=== PATIENT | male | born 1970 | race Caucasian/White ===

== ENCOUNTER 2017-09-10 13:36 | Outpatient (CLI) | payer OTHER | END 2017-09-10 15:53 | disposition home or self-care (01) | LOC: HPC 13:36 | DX: Z01.818 Encounter for other preprocedural examination (principal); K76.9 Liver disease, unspecified; Z85.038 Personal history of other malignant neoplasm of large intestine | CPT/HCPCS: G0463 ==

== ENCOUNTER → 2017-09-15 | Day surgery (SDC) | payer OTHER ==
[~2017-09-15] MED LIST: LIDOCAINE 100 MG SYRINGE; MIDAZOLAM 1 MG/ML 2 ML INJ
== END | disposition home or self-care (01) ==
LOC: GIL 15:26
DX: K56.699 Other intestinal obstruction unspecified as to partial versus complete obstruction (principal); Z85.038 Personal history of other malignant neoplasm of large intestine
CPT/HCPCS: 45381

== ENCOUNTER 2017-09-16 05:42 | Inpatient (IN) | payer OTHER ==
[2017-09-16] MEDS: BUPIVACAINE 0.5%/EPI (SDV) 30 ML INJ INJ ×2 (06:30→07:30)
[2017-09-16] MEDS: Metronidazole 500 MG in NS 100 ML IVPB (07:00)
[2017-09-16] MEDS: CEFAZOLIN 2 GM/50 ML (PMX) 50 ML IVPB (07:00)
[2017-09-16] MEDS ORDERED: METOCLOPRAMIDE 10 MG INJ (07:39)
[2017-09-16] MEDS ORDERED: MIDAZOLAM 1 MG/ML 2 ML INJ (07:39)
[2017-09-16] MEDS ORDERED: metroNIDAZOLE 500 MG/NS (PMX) 100 ML IVPB (08:07)
[2017-09-16] MEDS ORDERED: CEFAZOLIN 1 GM INJ (08:07)
[2017-09-16] MEDS ORDERED: HYDROmorphONE 2 MG/ML SYG ×2 (08:19→14:05)
[2017-09-16] MEDS ORDERED: ROCURONIUM 50 MG INJ ×3 (08:34→13:20)
[2017-09-16] MEDS ORDERED: PROPOFOL 20 ML (08:34)
[2017-09-16] MEDS ORDERED: ROPIVACAINE 0.5 % 30 ML VIAL (12:49)
[2017-09-16] MEDS ORDERED: ONDANSETRON 4 MG INJ (12:50)
[2017-09-16] MEDS ORDERED: KETOROLAC 30 MG INJ (12:50)
[2017-09-16] MEDS ORDERED: METOPROLOL 5 MG INJ (12:51)
[2017-09-16] MEDS ORDERED: ONDANSETRON 4 MG INJ IV ×2 (13:30→15:00)
[2017-09-16] MEDS ORDERED: HYDROmorphONE (0.2 MG/ML) 10ML SYG IV ×3 (13:30)
[2017-09-16] MEDS ORDERED: DIPHENHYDRAMINE 50 MG INJ IV (13:30)
[2017-09-16] MEDS ORDERED: MEPERIDINE 25 MG INJ IV (13:30)
[2017-09-16] MEDS ORDERED: NEOSTIGMINE 3 MG/3 ML SYRINGE (13:50)
[2017-09-16] MEDS ORDERED: GLYCOPYRROLATE 0.4 MG INJ (13:50)
[2017-09-16] MEDS ORDERED: FENTAnyl 50 MCG/ML VIAL (14:04)
[2017-09-16] MEDS ORDERED: EPHEDrine SULFATE 50 MG/5 ML SYG (14:12)
[2017-09-16] MEDS ORDERED: D5W-0.45 NACL + KCL 20 MEQ 1,000 ML IV (14:38)
[2017-09-16] MEDS ORDERED: ACETAMINOPHEN 325 MG TAB PO (15:00)
[2017-09-16] MEDS ORDERED: HYDROCODONE/APAP (5/325) TAB PO (15:00)
[2017-09-16] MEDS ORDERED: HYDROmorphONE 0.5 MG/0.5 ML SYG IV ×2 (15:00)
[2017-09-16] MEDS ORDERED: HYDROmorphONE 1 MG/ML SYG IV (15:00)
[2017-09-16] MEDS ORDERED: DOCUSATE SODIUM 100 MG CAP PO (15:00)
[2017-09-16 15:40] LABS: ABNORMAL IP MESSAGE 1; HEMOGLOBIN 13.2 g/dl (14.0-18.0); MEAN CORPUSCULAR HEMOGLOBIN 33.1 pg (29.0-33.0); MEAN CORPUSCULAR HGB CONC 33.8 g/dl (32.0-37.0); MEAN CORPUSCULAR VOLUME 97.7 fl (82.0-101.0); MEAN PLATELET VOLUME 9.5 fl (7.4-10.4); PLATELET COUNT 212 10^3/UL (140-415); POSITIVE DIFF @See below; RED BLOOD COUNT 3.99 10^6/ul (4.70-6.10); RED CELL DISTRIBUTION WIDTH 13.7 % (11.5-14.5)
[2017-09-16 15:50] LABS: HOLD TRANSMISSIONS 1
[2017-09-16 15:52] LABS: ADD MAN DIFF? YES
[2017-09-16 15:52] LABS: WHITE BLOOD COUNT 28.3 10^3/ul (4.8-10.8)
[2017-09-16] MEDS: HYDROmorphONE 0.2 MG/ML PCA IV (15:53)
[2017-09-16 16:00] LABS: INR 1.27; PARTIAL THROMBOPLASTIN TIME 28.5 Sec (25.0-35.0); PROTIME 16.1 Sec (11.9-14.9); PT RATIO 1.3
[2017-09-16 16:06] LABS: PHOSPHORUS 4.8 mg/dl (2.5-4.9)
[2017-09-16 16:06] LABS: ALANINE AMINOTRANSFERASE 345 IU/L (13-69); ALBUMIN 3.4 g/dl (3.3-4.9); ALBUMIN/GLOBULIN RATIO 1.13; ALKALINE PHOSPHATASE 71 IU/L (42-121); ANION GAP 19 (8-16); ASPARTATE AMINO TRANSFERASE 320 IU/L (15-46); BILIRUBIN,INDIRECT 1.2 mg/dl (0-1.1); BILIRUBIN,TOTAL 1.2 mg/dl (0.2-1.3); CARBON DIOXIDE 23 mmol/L (21-31); CHLORIDE 104 mmol/L (97-110); GLUCOSE 142 mg/dl (70-220); MAGNESIUM 1.7 mg/dl (1.7-2.5); TOTAL PROTEIN 6.4 g/dl (6.1-8.1)
[2017-09-16 16:07] LABS: LACTIC ACID 5.7 mmol/L (0.5-2.0)
[2017-09-16 16:07] LABS: BLOOD UREA NITROGEN 13 mg/dl (7-20); CALCIUM 8.5 mg/dl (8.4-10.2); CREATININE 1.01 mg/dl (0.61-1.24); POTASSIUM 4.6 mmol/L (3.5-5.1); SODIUM 141 mmol/L (135-144)
[2017-09-16 16:19] LABS: ANISOCYTOSIS 1+ (0-0); BAND NEUTROPHILS #M 2.2 10^3/ul (0.0-0.6); BAND NEUTROPHILS % (M) 8 % (0-4); GIANT THROMBO% (M) 1 % (0-0); LYMPHOCYTES #M 0.5 10^3/ul (0.8-2.9); LYMPHOCYTES % (M) 2 % (15-51); MICROCYTOSIS 1+ (0-0); MONOCYTE #M 2.5 10^3/ul (0.3-0.9); MONOCYTES % (M) 9 % (0-11); PLATELET ESTIMATE NORMAL; POLYCHROMASIA 1+ (0-0); SEG NEUT #M 23.5 10^3/ul (1.6-7.5); SEGMENTED NEUTROPHILS (M) % 81 % (39-77); SMUDGE%M 3 % (0-0)
[2017-09-16] MEDS: D5W-0.45 NACL + KCL 20 MEQ 1,000 ML IV ×2 (17:00→17:13)
[2017-09-16 21:44] LABS: LACTIC ACID 4.7 mmol/L (0.5-2.0)
[2017-09-16] MEDS: SOD CHLORIDE 0.9% 1,000 ML IV (23:25)
[2017-09-17] MEDS: SOD CHLORIDE 0.9% 500 ML IV ×2 (00:48→11:47)
[2017-09-17 00:52] LABS: ADD MAN DIFF? NO
[2017-09-17 00:55] LABS: WHITE BLOOD COUNT 35.3 10^3/ul (4.8-10.8)
[2017-09-17 00:55] LABS: ABNORMAL IP MESSAGE 1; BASOPHIL # 0.1 10^3/ul (0.0-0.1); BASOPHILS % 0.1 % (0.0-2.0); HEMATOCRIT 29.1 % (42.0-52.0); HEMOGLOBIN 9.7 g/dl (14.0-18.0); LYMPHOCYTES # 1.1 10^3/ul (0.8-2.9); MEAN CORPUSCULAR HEMOGLOBIN 33.2 pg (29.0-33.0); MEAN CORPUSCULAR HGB CONC 33.3 g/dl (32.0-37.0); MEAN CORPUSCULAR VOLUME 99.7 fl (82.0-101.0); MEAN PLATELET VOLUME 10.1 fl (7.4-10.4); MONOCYTE # 2.9 10^3/ul (0.3-0.9); MONOCYTES % 8.1 % (0.0-11.0); NEUTROPHIL # 30.9 10^3/ul (1.6-7.5); NEUTROPHILS % 87.7 % (39.0-77.0); PLATELET COUNT 288 10^3/UL (140-415); POSITIVE DIFF @See below; RED BLOOD COUNT 2.92 10^6/ul (4.70-6.10); RED CELL DISTRIBUTION WIDTH 13.7 % (11.5-14.5)
[2017-09-17] MEDS: PIPER-TAZO 3.375 GM IV (PMX) 100 ML IVPB ×4 (00:55→18:06)
[2017-09-17] MEDS ORDERED: VANCOMYCIN IV PER PHARMACY XX (02:00)
[2017-09-17 02:28] LABS: INR 1.91; PROTIME 22.3 Sec (11.9-14.9); PT RATIO 1.7
[2017-09-17 02:32] LABS: ALANINE AMINOTRANSFERASE 675 IU/L (13-69); ALBUMIN 2.8 g/dl (3.3-4.9); ALBUMIN/GLOBULIN RATIO 1.16; ALKALINE PHOSPHATASE 53 IU/L (42-121); ANION GAP 18 (8-16); BILIRUBIN,INDIRECT 1.5 mg/dl (0-1.1); BILIRUBIN,TOTAL 1.5 mg/dl (0.2-1.3); BLOOD UREA NITROGEN 18 mg/dl (7-20); CALCIUM 7.2 mg/dl (8.4-10.2); CARBON DIOXIDE 19 mmol/L (21-31); CHLORIDE 108 mmol/L (97-110); GLUCOSE 200 mg/dl (70-220); POTASSIUM 5.4 mmol/L (3.5-5.1); SODIUM 140 mmol/L (135-144); TOTAL PROTEIN 5.2 g/dl (6.1-8.1)
[2017-09-17] MEDS: VANCOMYCIN 1.75 GM in D5W 500 ML IVPB (02:34)
[2017-09-17 02:39] LABS: ASPARTATE AMINO TRANSFERASE 640 IU/L (15-46)
[2017-09-17] MEDS: D5W-0.45 NACL + KCL 20 MEQ 1,000 ML IV (02:42)
[2017-09-17] MEDS: DEXTROSE 5%-0.45% NACL 1,000 ML IV ×3 (03:18→17:15)
[2017-09-17] MEDS: SOD CHLORIDE 0.9% 1,000 ML IV ×2 (03:18→10:12)
[2017-09-17 03:46] LABS: ADD UMIC YES; UR ASCORBIC ACID 40 mg/dL (NEGATIVE); UR BILIRUBIN (Dip) NEGATIVE (NEGATIVE); UR BLOOD (Dip) 3+ mg/dL (NEGATIVE); UR CLARITY SLIGHTLY CLOUDY (CLEAR); UR COLOR YELLOW (YELLOW); UR GLUCOSE (Dip) 3+ mg/dL (NEGATIVE); UR KETONES (Dip) NEGATIVE (NEGATIVE); UR LEUKOCYTE ESTERASE (Dip) NEGATIVE Leu/ul (NEGATIVE); UR MUCUS FEW /HPF (NONE SEEN); UR NITRITE (Dip) NEGATIVE (NEGATIVE); UR RBC 12 /HPF (0-5); UR SPECIFIC GRAVITY (Dip) 1.022 (1.003-1.030); UR TOTAL PROTEIN (Dip) 1+ mg/dl (NEGATIVE); UR UROBILINOGEN (Dip) NEGATIVE (NEGATIVE); UR WBC 1 /HPF (0-5)
[2017-09-17 05:11] LABS: ABNORMAL IP MESSAGE 1; ADD MAN DIFF? NO; BASOPHILS % 0.1 % (0.0-2.0); HEMATOCRIT 21.7 % (42.0-52.0); HEMOGLOBIN 7.5 g/dl (14.0-18.0); LYMPHOCYTES # 0.9 10^3/ul (0.8-2.9); LYMPHOCYTES % 3.3 % (15.0-51.0); MEAN CORPUSCULAR HEMOGLOBIN 33.2 pg (29.0-33.0); MEAN CORPUSCULAR HGB CONC 34.6 g/dl (32.0-37.0); MEAN PLATELET VOLUME 10.1 fl (7.4-10.4); MONOCYTE # 2.8 10^3/ul (0.3-0.9); MONOCYTES % 10.5 % (0.0-11.0); NEUTROPHIL # 22.4 10^3/ul (1.6-7.5); NEUTROPHILS % 85.2 % (39.0-77.0); PLATELET COUNT 226 10^3/UL (140-415); POSITIVE DIFF @See below; RED BLOOD COUNT 2.26 10^6/ul (4.70-6.10); RED CELL DISTRIBUTION WIDTH 13.7 % (11.5-14.5)
[2017-09-17 05:11] LABS: WHITE BLOOD COUNT 26.2 10^3/ul (4.8-10.8)
[2017-09-17 05:39] LABS: INR 2.12; PROTIME 24.3 Sec (11.9-14.9); PT RATIO 1.9
[2017-09-17 06:02] LABS: B-TYPE NATRIURETIC PEPTIDE 84 PG/ML (0-125)
[2017-09-17 06:31] LABS: LACTIC ACID 6.2 mmol/L (0.5-2.0)
[2017-09-17 06:49] LABS: ALANINE AMINOTRANSFERASE 770 IU/L (13-69); ALBUMIN 2.5 g/dl (3.3-4.9); ALBUMIN/GLOBULIN RATIO 1.04; ALKALINE PHOSPHATASE 64 IU/L (42-121); ANION GAP 16 (8-16); ASPARTATE AMINO TRANSFERASE 668 IU/L (15-46); BILIRUBIN,INDIRECT 1.4 mg/dl (0-1.1); BILIRUBIN,TOTAL 1.4 mg/dl (0.2-1.3); BLOOD UREA NITROGEN 19 mg/dl (7-20); CARBON DIOXIDE 19 mmol/L (21-31); CHLORIDE 110 mmol/L (97-110); CREATININE 1.64 mg/dl (0.61-1.24); GLUCOSE 168 mg/dl (70-220); MAGNESIUM 1.5 mg/dl (1.7-2.5); PHOSPHORUS 3.9 mg/dl (2.5-4.9); POTASSIUM 5.5 mmol/L (3.5-5.1); SODIUM 139 mmol/L (135-144); TOTAL PROTEIN 4.9 g/dl (6.1-8.1)
[2017-09-17 07:26] LABS: AADO2 Arterial 45.5 mmHg (7.0-24.0); Allen Test ACCEPTAB; Arterial Base Excess -6.2 mmol/L (-3.0-3); Arterial Blood Gas Oxygen Sat 96.7 mmHG (95.0-98.0); Arterial COHb 0.3 % (0.0-3.0); Arterial Fraction of Oxyhgb 95.8 % (93.0-99.0); Arterial HCO3 19.1 mmol/L (22.0-26.0); Arterial MetHb 0.6 % (0.0-1.5); Arterial Total Hemglobin 8.6 g/dl (12.0-18.0); Arterial pCO2 36.4 mmhg (35-45); MODE NASAL CANNULA; Site Right Radial
[2017-09-17] MEDS: PANTOPRAZOLE 40 MG INJ IV (07:32)
[2017-09-17] MEDS ORDERED: ENOXAPARIN 40 MG/0.4 ML SYG SC (09:00)
[2017-09-17] MEDS ORDERED: FAMOTIDINE 20 MG INJ IV (09:00)
[2017-09-17] MEDS: PHYTONADIONE 2 MG in DEXTROSE 5% 50 ML IVPB (09:22)
[2017-09-17] MEDS ORDERED: PHYTONADIONE 2 MG in DEXTROSE 5% 50 ML IVPB (10:00)
[2017-09-17] MEDS: ALBUMIN HUMAN 25% 100 ML IV (11:47)
[2017-09-17 12:41] LABS: HEMATOCRIT 21.2 % (42.0-52.0); HEMOGLOBIN 7.3 g/dl (14.0-18.0)
[2017-09-17 12:51] LABS: SODIUM,URINE RANDOM < 13 mmol/L (30-90)
[2017-09-17 12:55] LABS: CREATININE,URINE RANDOM 283.67 mg/dl (20-370); PROTEIN/CREAT RATIO 0.09 RATIO
[2017-09-17 13:08] LABS: ANION GAP 19 (8-16); BLOOD UREA NITROGEN 23 mg/dl (7-20); CALCIUM 7.2 mg/dl (8.4-10.2); CARBON DIOXIDE 19 mmol/L (21-31); CHLORIDE 108 mmol/L (97-110); CREATININE 1.93 mg/dl (0.61-1.24); GLUCOSE 142 mg/dl (70-220); POTASSIUM 5.1 mmol/L (3.5-5.1); SODIUM 141 mmol/L (135-144)
[2017-09-17] MEDS ORDERED: VANCOMYCIN 1.25 GM in SOD CHLORIDE 0.9% 250 ML IVPB (14:00)
[2017-09-17] MEDS: FUROSEMIDE 20 MG INJ IV (14:24)
[2017-09-17 18:33] LABS: LACTIC ACID 3.8 mmol/L (0.5-2.0)
[2017-09-17] MEDS: HYDROmorphONE 0.2 MG/ML PCA IV (20:17)
[2017-09-17 20:33] LABS: HEMATOCRIT 16.6 % (42.0-52.0)
[2017-09-17 20:47] LABS: HEMOGLOBIN 5.6 g/dl (14.0-18.0)
[2017-09-17 21:03] LABS: LACTIC ACID 3.6 mmol/L (0.5-2.0)
[2017-09-17] MEDS: LORAZEPAM 0.5 MG TAB PO (22:01)
[2017-09-18] MEDS: PIPER-TAZO 3.375 GM IV (PMX) 100 ML IVPB ×4 (00:16→18:38)
[2017-09-18 03:22] LABS: ADD MAN DIFF? NO
[2017-09-18 03:25] LABS: WHITE BLOOD COUNT 15.7 10^3/ul (4.8-10.8)
[2017-09-18 03:25] LABS: ABNORMAL IP MESSAGE 1; BASOPHILS % 0.1 % (0.0-2.0); HEMATOCRIT 18.6 % (42.0-52.0); LYMPHOCYTES # 0.8 10^3/ul (0.8-2.9); LYMPHOCYTES % 5.3 % (15.0-51.0); MEAN CORPUSCULAR HEMOGLOBIN 32.3 pg (29.0-33.0); MEAN CORPUSCULAR HGB CONC 34.4 g/dl (32.0-37.0); MEAN CORPUSCULAR VOLUME 93.9 fl (82.0-101.0); MEAN PLATELET VOLUME 10.4 fl (7.4-10.4); MONOCYTE # 1.9 10^3/ul (0.3-0.9); NEUTROPHIL # 12.9 10^3/ul (1.6-7.5); NEUTROPHILS % 81.9 % (39.0-77.0); PLATELET COUNT 132 10^3/UL (140-415); POSITIVE DIFF @See below; RED BLOOD COUNT 1.98 10^6/ul (4.70-6.10); RED CELL DISTRIBUTION WIDTH 14.4 % (11.5-14.5)
[2017-09-18 03:29] LABS: HEMOGLOBIN 6.4 g/dl (14.0-18.0)
[2017-09-18 03:45] LABS: INR 1.69; PARTIAL THROMBOPLASTIN TIME 24.1 Sec (25.0-35.0); PROTIME 20.2 Sec (11.9-14.9); PT RATIO 1.6
[2017-09-18 04:05] LABS: LACTIC ACID 2.5 mmol/L (0.5-2.0)
[2017-09-18 04:07] LABS: B-TYPE NATRIURETIC PEPTIDE 80 PG/ML (0-125)
[2017-09-18 04:14] LABS: IMMEDIATE SPIN CROSSMATCH 1 2
[2017-09-18 04:21] LABS: ALANINE AMINOTRANSFERASE 875 IU/L (13-69); ALBUMIN 2.8 g/dl (3.3-4.9); ALBUMIN/GLOBULIN RATIO 1.21; ALKALINE PHOSPHATASE 82 IU/L (42-121); ANION GAP 16 (8-16); ASPARTATE AMINO TRANSFERASE 704 IU/L (15-46); BILIRUBIN,INDIRECT 1.5 mg/dl (0-1.1); BILIRUBIN,TOTAL 1.5 mg/dl (0.2-1.3); BLOOD UREA NITROGEN 25 mg/dl (7-20); CALCIUM 7.3 mg/dl (8.4-10.2); CARBON DIOXIDE 23 mmol/L (21-31); CHLORIDE 108 mmol/L (97-110); CREATININE 1.61 mg/dl (0.61-1.24); GLUCOSE 109 mg/dl (70-220); MAGNESIUM 1.6 mg/dl (1.7-2.5); PHOSPHORUS 2.5 mg/dl (2.5-4.9); POTASSIUM 4.1 mmol/L (3.5-5.1); SODIUM 143 mmol/L (135-144); TOTAL PROTEIN 5.1 g/dl (6.1-8.1)
[2017-09-18 04:34] LABS: ALANINE AMINOTRANSFERASE 886 IU/L (13-69); ALBUMIN 2.8 g/dl (3.3-4.9); ALKALINE PHOSPHATASE 77 IU/L (42-121); ASPARTATE AMINO TRANSFERASE 699 IU/L (15-46); BILIRUBIN,INDIRECT 1.4 mg/dl (0-1.1); BILIRUBIN,TOTAL 1.4 mg/dl (0.2-1.3); TOTAL PROTEIN 5.1 g/dl (6.1-8.1)
[2017-09-18] MEDS: PANTOPRAZOLE 40 MG INJ IV (05:36)
[2017-09-18] MEDS: DEXTROSE 5%-0.45% NACL 1,000 ML IV ×4 (08:27→13:30)
[2017-09-18 09:48] LABS: ADD MAN DIFF? NO
[2017-09-18 09:53] LABS: WHITE BLOOD COUNT 15.6 10^3/ul (4.8-10.8)
[2017-09-18 09:53] LABS: ABNORMAL IP MESSAGE 1; BASOPHILS % 0.1 % (0.0-2.0); HEMOGLOBIN 7.4 g/dl (14.0-18.0); LYMPHOCYTES # 0.7 10^3/ul (0.8-2.9); LYMPHOCYTES % 4.5 % (15.0-51.0); MEAN CORPUSCULAR HEMOGLOBIN 31.1 pg (29.0-33.0); MEAN CORPUSCULAR HGB CONC 35.2 g/dl (32.0-37.0); MEAN CORPUSCULAR VOLUME 88.2 fl (82.0-101.0); MONOCYTE # 1.6 10^3/ul (0.3-0.9); MONOCYTES % 10.3 % (0.0-11.0); NEUTROPHIL # 13.1 10^3/ul (1.6-7.5); NEUTROPHILS % 84.2 % (39.0-77.0); PLATELET COUNT 120 10^3/UL (140-415); POSITIVE DIFF @See below; RED BLOOD COUNT 2.38 10^6/ul (4.70-6.10); RED CELL DISTRIBUTION WIDTH 17.6 % (11.5-14.5)
[2017-09-18 10:11] LABS: LACTIC ACID 1.9 mmol/L (0.5-2.0)
[2017-09-18] MEDS: HYDROmorphONE 0.2 MG/ML PCA IV (15:04)
[2017-09-18 16:38] LABS: HEMATOCRIT 21.8 % (42.0-52.0); HEMOGLOBIN 7.4 g/dl (14.0-18.0)
[2017-09-18 16:58] LABS: LACTIC ACID 2.2 mmol/L (0.5-2.0)
[2017-09-18] MEDS: DOCUSATE SODIUM 100 MG CAP PO (20:31)
[2017-09-18 22:22] LABS: ADD MAN DIFF? NO
[2017-09-18 22:25] LABS: ABNORMAL IP MESSAGE 1; BASOPHILS % 0.1 % (0.0-2.0); EOSINOPHILS % 0.1 % (0.0-7.0); HEMATOCRIT 19.7 % (42.0-52.0); LYMPHOCYTES # 0.9 10^3/ul (0.8-2.9); LYMPHOCYTES % 5.7 % (15.0-51.0); MEAN CORPUSCULAR HEMOGLOBIN 30.3 pg (29.0-33.0); MEAN CORPUSCULAR VOLUME 89.1 fl (82.0-101.0); MEAN PLATELET VOLUME 9.6 fl (7.4-10.4); MONOCYTE # 1.4 10^3/ul (0.3-0.9); MONOCYTES % 9.3 % (0.0-11.0); NEUTROPHIL # 12.7 10^3/ul (1.6-7.5); NEUTROPHILS % 84.2 % (39.0-77.0); PLATELET COUNT 111 10^3/UL (140-415); POSITIVE DIFF @See below; RED BLOOD COUNT 2.21 10^6/ul (4.70-6.10); RED CELL DISTRIBUTION WIDTH 18.2 % (11.5-14.5)
[2017-09-18 22:35] LABS: HEMOGLOBIN 6.7 g/dl (14.0-18.0)
[2017-09-18 22:41] LABS: LACTIC ACID 1.5 mmol/L (0.5-2.0)
[2017-09-19] MEDS: PIPER-TAZO 3.375 GM IV (PMX) 100 ML IVPB ×2 (00:22→05:28)
[2017-09-19] MEDS: DEXTROSE 5%-0.45% NACL 1,000 ML IV (00:23)
[2017-09-19] MEDS: PANTOPRAZOLE 40 MG INJ IV (05:28)
[2017-09-19 05:36] LABS: ADD MAN DIFF? NO
[2017-09-19 05:45] LABS: ABNORMAL IP MESSAGE 1; BASOPHILS % 0.1 % (0.0-2.0); EOSINOPHILS # 0.1 10^3/ul (0.0-0.5); EOSINOPHILS % 0.3 % (0.0-7.0); LYMPHOCYTES # 0.8 10^3/ul (0.8-2.9); LYMPHOCYTES % 5.9 % (15.0-51.0); MEAN CORPUSCULAR HEMOGLOBIN 30.9 pg (29.0-33.0); MEAN CORPUSCULAR VOLUME 90.9 fl (82.0-101.0); MEAN PLATELET VOLUME 9.9 fl (7.4-10.4); MONOCYTE # 1.4 10^3/ul (0.3-0.9); MONOCYTES % 9.4 % (0.0-11.0); NEUTROPHILS % 83.4 % (39.0-77.0); PLATELET COUNT 123 10^3/UL (140-415); POSITIVE DIFF @See below; RED CELL DISTRIBUTION WIDTH 17.8 % (11.5-14.5)
[2017-09-19 05:45] LABS: WHITE BLOOD COUNT 14.3 10^3/ul (4.8-10.8)
[2017-09-19 06:02] LABS: HEMOGLOBIN 6.8 g/dl (14.0-18.0)
[2017-09-19 06:03] LABS: ANION GAP 11 (8-16); BLOOD UREA NITROGEN 20 mg/dl (7-20); CALCIUM 7.6 mg/dl (8.4-10.2); CARBON DIOXIDE 28 mmol/L (21-31); CHLORIDE 103 mmol/L (97-110); CREATININE 1.31 mg/dl (0.61-1.24); GLUCOSE 121 mg/dl (70-220); MAGNESIUM 1.8 mg/dl (1.7-2.5); PHOSPHORUS 2.1 mg/dl (2.5-4.9); POTASSIUM 3.9 mmol/L (3.5-5.1); SODIUM 138 mmol/L (135-144)
[2017-09-19] MEDS: HYDROmorphONE 0.2 MG/ML PCA IV (08:37)
[2017-09-19] MEDS: DOCUSATE SODIUM 100 MG CAP PO ×2 (09:04→21:06)
[2017-09-19 12:22] LABS: HEMATOCRIT 24.5 % (42.0-52.0); HEMOGLOBIN 8.4 g/dl (14.0-18.0)
[2017-09-19 13:09] LABS: LACTIC ACID 2.3 mmol/L (0.5-2.0)
[2017-09-19 19:40] LABS: LACTIC ACID 1.8 mmol/L (0.5-2.0)
[2017-09-19] MEDS: FAMOTIDINE 20 MG TAB PO (21:06)
[2017-09-20] MEDS: HYDROmorphONE 0.2 MG/ML PCA IV (04:28)
[2017-09-20 05:08] LABS: ADD MAN DIFF? NO
[2017-09-20 05:26] LABS: WHITE BLOOD COUNT 14.7 10^3/ul (4.8-10.8)
[2017-09-20 05:26] LABS: ABNORMAL IP MESSAGE 1; BASOPHILS % 0.1 % (0.0-2.0); EOSINOPHILS # 0.2 10^3/ul (0.0-0.5); EOSINOPHILS % 1.3 % (0.0-7.0); HEMOGLOBIN 7.2 g/dl (14.0-18.0); LYMPHOCYTES # 0.8 10^3/ul (0.8-2.9); LYMPHOCYTES % 5.6 % (15.0-51.0); MEAN CORPUSCULAR HEMOGLOBIN 31.2 pg (29.0-33.0); MEAN CORPUSCULAR HGB CONC 34.3 g/dl (32.0-37.0); MEAN CORPUSCULAR VOLUME 90.9 fl (82.0-101.0); MEAN PLATELET VOLUME 9.7 fl (7.4-10.4); MONOCYTE # 1.7 10^3/ul (0.3-0.9); MONOCYTES % 11.4 % (0.0-11.0); NEUTROPHILS % 81.2 % (39.0-77.0); PLATELET COUNT 166 10^3/UL (140-415); POSITIVE DIFF @See below; RED BLOOD COUNT 2.31 10^6/ul (4.70-6.10); RED CELL DISTRIBUTION WIDTH 17.3 % (11.5-14.5)
[2017-09-20 05:34] LABS: PROTIME 16.4 Sec (11.9-14.9); PT RATIO 1.3
[2017-09-20 05:35] LABS: PARTIAL THROMBOPLASTIN TIME 38.6 Sec (25.0-35.0)
[2017-09-20 05:47] LABS: LACTIC ACID 1.6 mmol/L (0.5-2.0)
[2017-09-20 05:56] LABS: ALANINE AMINOTRANSFERASE 433 IU/L (13-69); ALBUMIN 2.7 g/dl (3.3-4.9); ALBUMIN/GLOBULIN RATIO 1.17; ALKALINE PHOSPHATASE 114 IU/L (42-121); ANION GAP 13 (8-16); ASPARTATE AMINO TRANSFERASE 134 IU/L (15-46); BILIRUBIN,INDIRECT 1.4 mg/dl (0-1.1); BILIRUBIN,TOTAL 1.4 mg/dl (0.2-1.3); BLOOD UREA NITROGEN 23 mg/dl (7-20); CALCIUM 7.9 mg/dl (8.4-10.2); CARBON DIOXIDE 27 mmol/L (21-31); CHLORIDE 103 mmol/L (97-110); GLUCOSE 103 mg/dl (70-220); PHOSPHORUS 2.4 mg/dl (2.5-4.9); SODIUM 139 mmol/L (135-144)
[2017-09-20 05:57] LABS: B-TYPE NATRIURETIC PEPTIDE 206 PG/ML (0-125)
[2017-09-20] MEDS: DOCUSATE SODIUM 100 MG CAP PO ×2 (09:50→21:30)
[2017-09-20] MEDS: HYDROCODONE/APAP (5/325) TAB PO ×4 (11:37→22:30)
[2017-09-20] MEDS: FAMOTIDINE 20 MG TAB PO (21:31)
[2017-09-21] MEDS: HYDROCODONE/APAP (5/325) TAB PO ×4 (02:28→13:02)
[2017-09-21 05:36] LABS: ADD MAN DIFF? NO
[2017-09-21 05:45] LABS: WHITE BLOOD COUNT 13.3 10^3/ul (4.8-10.8)
[2017-09-21 05:45] LABS: ABNORMAL IP MESSAGE 1; BASOPHILS % 0.2 % (0.0-2.0); EOSINOPHILS # 0.6 10^3/ul (0.0-0.5); EOSINOPHILS % 4.2 % (0.0-7.0); HEMATOCRIT 21.7 % (42.0-52.0); HEMOGLOBIN 7.3 g/dl (14.0-18.0); LYMPHOCYTES # 0.9 10^3/ul (0.8-2.9); LYMPHOCYTES % 6.7 % (15.0-51.0); MEAN CORPUSCULAR HEMOGLOBIN 30.5 pg (29.0-33.0); MEAN CORPUSCULAR HGB CONC 33.6 g/dl (32.0-37.0); MEAN CORPUSCULAR VOLUME 90.8 fl (82.0-101.0); MEAN PLATELET VOLUME 9.8 fl (7.4-10.4); MONOCYTE # 1.8 10^3/ul (0.3-0.9); MONOCYTES % 13.8 % (0.0-11.0); NEUTROPHIL # 9.9 10^3/ul (1.6-7.5); NEUTROPHILS % 74.6 % (39.0-77.0); PLATELET COUNT 186 10^3/UL (140-415); POSITIVE DIFF @See below; RED BLOOD COUNT 2.39 10^6/ul (4.70-6.10); RED CELL DISTRIBUTION WIDTH 16.6 % (11.5-14.5)
[2017-09-21 05:59] LABS: INR 1.38; PARTIAL THROMBOPLASTIN TIME 35.2 Sec (25.0-35.0); PROTIME 17.2 Sec (11.9-14.9); PT RATIO 1.3
[2017-09-21 05:59] LABS: LACTIC ACID 1.6 mmol/L (0.5-2.0)
[2017-09-21 06:27] LABS: ALANINE AMINOTRANSFERASE 299 IU/L (13-69); ALBUMIN 2.7 g/dl (3.3-4.9); ALBUMIN/GLOBULIN RATIO 1.08; ALKALINE PHOSPHATASE 127 IU/L (42-121); ANION GAP 10 (8-16); ASPARTATE AMINO TRANSFERASE 73 IU/L (15-46); BILIRUBIN,INDIRECT 1.4 mg/dl (0-1.1); BILIRUBIN,TOTAL 1.4 mg/dl (0.2-1.3); BLOOD UREA NITROGEN 25 mg/dl (7-20); CARBON DIOXIDE 30 mmol/L (21-31); CHLORIDE 103 mmol/L (97-110); CREATININE 1.01 mg/dl (0.61-1.24); GLUCOSE 108 mg/dl (70-220); MAGNESIUM 2.1 mg/dl (1.7-2.5); PHOSPHORUS 2.5 mg/dl (2.5-4.9); POTASSIUM 3.4 mmol/L (3.5-5.1); SODIUM 140 mmol/L (135-144); TOTAL PROTEIN 5.2 g/dl (6.1-8.1)
[2017-09-21 06:29] LABS: B-TYPE NATRIURETIC PEPTIDE 90 PG/ML (0-125)
[2017-09-21] MEDS: DOCUSATE SODIUM 100 MG CAP PO (08:51)
[2017-09-21] MEDS: POTASSIUM CHLORIDE (SR) 20 MEQ TAB PO (12:54)
== END 2017-09-21 13:28 | disposition home or self-care (01) | DRG 329 ==
LOC: REC 05:42 → ICU 09-17 02:34 → MS1 09-20 12:51
PROVIDERS: Transplant Surgery
PROC: 0DTN4ZZ Resection of Sigmoid Colon, Percutaneous Endoscopic Approach (ICD-10-PCS; principal; 2017-09-16 07:30)
PROC: 0FB14ZZ Excision of Right Lobe Liver, Percutaneous Endoscopic Approach (ICD-10-PCS; 2017-09-16 07:30)
PROC: 30233N1 Transfusion of Nonautologous Red Blood Cells into Peripheral Vein, Percutaneous Approach (ICD-10-PCS; 2017-09-16 07:43)
DX: C18.7 Malignant neoplasm of sigmoid colon (principal); N17.0 Acute kidney failure with tubular necrosis; C78.7 Secondary malignant neoplasm of liver and intrahepatic bile duct; E87.5 Hyperkalemia; R71.0 Precipitous drop in hematocrit; K91.840 Postprocedural hemorrhage of a digestive system organ or structure following a digestive system procedure; E86.0 Dehydration; I95.81 Postprocedural hypotension; Y83.8 Other surgical procedures as the cause of abnormal reaction of the patient, or of later complication, without mention of misadventure at the time of the procedure; Y81.8 Miscellaneous general- and plastic-surgery devices associated with adverse incidents, not elsewhere classified; Y92.230 Patient room in hospital as the place of occurrence of the external cause
CPT/HCPCS: 36430; 36600; 74176; 76705; 76775; 80048; 80053; 80076; 81001; 81003; 82570; 82803; 83605; 83735; 83880; 84100; 84300; 84560; 85014; 85018; 85025; 85610; 85730; 86850; 86900; 86901; 86920; 87040; 87081; 87086; 89190; 97110; 97116; 97162; 97165; 97168; J1940

== ENCOUNTER 2017-10-01 15:13 | Outpatient (CLI) | payer OTHER | END 2017-10-01 17:04 | disposition home or self-care (01) | LOC: HPC 15:13 | DX: C18.9 Malignant neoplasm of colon, unspecified (principal); C78.7 Secondary malignant neoplasm of liver and intrahepatic bile duct | CPT/HCPCS: G0463 ==